=== PATIENT | male | born 2005 | race Caucasian/White ===

== ENCOUNTER 2025-01-21 08:36 | Outpatient (AMB) | payer OTHER, MEDICAID, SELFPAY ==
[2025-01-21 09:15] VITALS: BP 102/70; PULSE 62; TEMP 36.8; O2SAT 96; BMI 30.6
--- NOTE | 2025-01-21 09:15 | AM.OFFWIN_ITS ---
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 - The condition began approximately one month ago, with symptoms including itching, crusting, and flaking around the lips. - The patient has used CeraVe eczema cre am and lotion, but symptoms have persisted and worsened after ocean exposure. - No history of eczema in this area and no hydrocortisone use reported. - Itching occurs mainly upon waking, wit h no allergy medications taken. - He denies new lotions, soaps, detergen ts, shaving cream, cologne, foods, medications, or other rashes. Physical Exam General: Cooperative, healthy appearing, comfortable, no acute distress and well developed Orientation: Patient oriented x3 Limitations: No limitations Mouth: Normal, moist oral mucosa with flaky, dry skin around the lips Respiratory: Normal respiratory effort and able to speak in complete sentences. Clear to auscultation bilaterally. No w/r/r noted. Cardiovascular: RRR, no m/r/g noted. Normal S1 and S2 Skin: Whitish flaking noted on the lower lip, dry, slightly erythematous. No lesions noted. Patient was informed and verbally consented to the use of an ambient scribe for clinic note documentation during this visit Review of Systems Const All systems reviewed & are unremarkable except as noted in HPI and below Physical Exam Vital Signs: Last Vital Signs Temp 98.2 F 01/21/25 09:15 Pulse 62 01/21/25 09:15 BP 102/70 01/21/25 09:15 Pulse Ox 96 01/21/25 09:15 Oxygen Delivery Method Room Air 01/21/25 09:15 BMI result Body Mass Index 30.6 Assessment & Plan Assessment & Plan (1) Rash: Code(s): R21 - Rash and other nonspecific skin eruption Plan Most likely tinea vs dermatitis vs eczema vs folliculitis plan - A topical cream will be prescribed for application to the affected area. - Consideration for allergy medication to alleviate itching was discussed. - Referral to dermatology is advised if symptoms do not improve. Medications: New cetirizine 10 mg PO DAILY PRN 30 tabs 0RF allergy symptoms clotrimazole 1% 1 appl topical bid 45 grams 1RF 4 weeks Coding Level of Care Code Est Pt Level 3 (64464) Diagnoses Rash R21
== END 2025-01-21 09:31 | disposition home or self-care (01) ==
PROVIDERS: PCP Family Medicine; Visit Provider Physician Assistant Medical
DX: R21 Rash and other nonspecific skin eruption (principal)

== ENCOUNTER 2025-02-09 09:43 | Outpatient (AMB) | payer OTHER, MEDICAID, SELFPAY ==
[2025-02-09 09:48] VITALS: BP 112/82; PULSE 56; O2SAT 98; BMI 30.5
--- NOTE | 2025-02-09 09:48 | A.OFFPC_ITS ---
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 Allergies No Known Allergies Allergy (Verified 02/09/25 09:54) Medication List - Last Reconciled 02/09/25 by Mauri Roman MD albuterol sulfate 90 mcg/actuation 1 puff inhalation Q4-6H cetirizine 10 mg PO DAILY PRN clotrimazole 1% 1 appl topical bid 4 weeks Tobacco use date assessed: 02/09/25 Dental Screening Dental Screen Date: 02/09/25 Did you have a dental visit in the last 12 months?: Yes Did you have a dental problem in the last 6 months where you did not have access to dental care?: No Was dental information given to patient?: 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 ?? Prior PCP:? Unsure Last office visit/CPE:?3-5 yrs ago Acute issue(s):? Went to walk in for oral dermatitis ?? PMHx:? Asthma - uses Albuterol rarely (when sick). SurgHx:? Tonsils FHx:?None SocHx:? Nonsmoker. EtOH Rarely 1-2 dr. [facility] Surgical History (Updated 02/09/25 @ 09:55 by Monse Key CMA) No pertinent past surgical history Social History (Updated 02/09/25 @ 09:56 by Monse Key CMA) Household Members: Family Housing: House Alcohol intake: current Alcohol intake frequency: a few times a month Alcohol type: hard liquor Patient Tobacco Use Status: Never used Tobacco e-Cigarette/Vaping Use: Never Used service: Yes ([employer]) Current occupational status: employed Current occupation: [employer] Cognitive needs: No Hearing needs: No Vision needs: No Questionnaire PHQ-9 Over the last 2 weeks, how often have you been bothered by any of the following problems? 1. Little interest or pleasure in doing things: not at all 2. Feeling down, depressed, or hopeless: not at all 3. Trouble falling or staying asleep, or sleeping too much: more than half the days 4. Feeling tired or having little energy: not at all 5. Poor appetite or overeating: not at all 6. Feeling bad about yourself - or that you are a failure or have let yourself or your family down: not at all 7. Trouble concentrating on things, such as reading the newspaper or watching television: not at all 8. Moving or speaking so slowly that other people could have noticed. Or the opposite - being so fidgety or restless that you have been moving around a lot more than usual: not at all 9. Thoughts that you would be better off or of hurting yourself in some way: not at all Total score: 2 Depression Screening Interpretation: Negative Depression Screening Done: Yes 45734 - PHQ-9 Billing: Yes Source: Developed by Drs. Denis Anguiano, Kinjal Carson, Jared Joseph and colleagues, with an educational robert from [employer]. Thrive Questionnaire Date Thrive assessed: 02/06/25 I am a: Patient What is your living situation today?: I have a steady place to live Within the past 12 months, did the food you bought not last and you didn't have the money to get more?: I choose not to answer this question Within the past 12 months, did you worry whether your food would run out before you got money to buy more?: I choose not to answer this question Do you have trouble paying for medicines?: I choose not to answer this question Do you have trouble getting transportation to medical appointments?: No Do you have trouble paying your heating and electricity bill?: No Do you have trouble taking care of your child, family member or friend?: No Do you have trouble with day-to-day activities such as bathing, preparing meals, shopping, managing finances, etc.?: No Are you currently unemployed and looking for a job?: No Are you interested in more education?: Yes Please select the resources that you would like help with: None Currently or been in a relationship where the following occur: No concerns reported THRIVE Score: 0 AUDIT C Alcohol Use Questionnaire (AUDIT-C) 1. How often do you have a drink containing alcohol?: Monthly or less 2. How many drinks containing alcohol do you have on a typical day when you are drinking?: 1 or 2 3. How often do you have six or more drinks on one occasion?: Never Total Score: 1 LJ-7 AMB Questionnaire LJ-7 Date LJ - 7 assessed: 02/09/25 Feeling nervous, anxious, or on edge: 0 = Not at all Not being able to stop or control worryin = Not at all Worrying too much about different things: 0 = Not at all Trouble relaxin = Not at all Being so restless that it is hard to sit still: 0 = Not at all Becoming easily annoyed or irritable: 0 = Not at all Feeling afraid as if something awful might happen: 0 = Not at all Total LJ-7 score (0-4 normal; 5-9 mild; 10-14 moderate; 15-21 severe): 0 Source: Developed by Drs. Denis Anguiano, Kinjal Carson, Jared Joseph and colleagues, with an educational robert from [employer]. LJ-7 Assessment Billing LJ-7 Assessment Tool: LJ-7 Assessment 08505 Physical exam (Primary Care) Vital Signs: Last Vital Signs Pulse 56 02/09/25 09:48 BP 112/82 02/09/25 09:48 Pulse Ox 98 02/09/25 09:48 Oxygen Delivery Method Room Air 02/09/25 09:48 BMI result Body Mass Index 30.5 Tobacco/Smoking Status: Tobacco use Status Tobacco use date assessed 02/09/25 02/09/25 10:01 Patient Tobacco Use Status Never used Tobacco 02/09/25 10:01 e-Cigarette/Vaping Use Never Used 02/09/25 10:01 PHQ-9: PHQ-9 Score PHQ-9: Total score 2 02/09/25 10:40 Depression Screening Interpretation: Negative Thrive Assessment: Date of Thrive Assessment Date Thrive assessed 02/06/25 02/09/25 10:01 Currently or been in a relationship where the following occur: No concerns reported Immunizations Boostrix Tdap 2.5 Lf unit-8 mcg-5 Lf/0.5 mL intramuscular syringe Performing Provider: Mauri Roman MD Performing [facility] [facility] Administered by: Ab Fermin RN on 02/09/25 10:38 Dose Route Admin Location Dispensed Lot Number Expiration Date [facility] Merchandising Stock Associate 0.5 mL IM Right Deltoid 0.5 mL [id number] 04/01/27 66576-220-84 [employer] Total Dispensed Waste 0.5 mL 0 % VIS Given Date VIS Provided VIS Publication Date 02/09/25 Single Vaccine 20 Eligibility Eligibility Date Funding Source Not [facility] Eligible 02/09/25 Private Coding Level of Care Code New Pt Level 3 (24202) Diagnoses Dermatitis L30.9 Asthma J45.909 Sleep apnea G47.30 Screening for STD (sexually transmitted disease) Z11.3 Laboratory exam ordered as part of routine general medical examination Z00.00 Additional Codes LJ-7 Assessment Billing - LJ-7 Assessment Tool: LJ-7 Assessment 49010 ([id number]) PHQ-9 - 50648 - PHQ-9 Billing: Yes ([id number]) Assessment & Plan Assessment & Plan (1) Dermatitis: Code(s): L30.9 - Dermatitis, unspecified Category: Medical Plan: Rash around mouth and primarily on chin He is using clotrimazole for the past 2 weeks. Will make a referral to Dermatology. Continue clotrimazole for now (2) Asthma: Code(s): J45.909 - Unspecified asthma, uncomplicated Category: Medical Plan: Mild intermittent asthma Uses albuterol pump but needs a refill Will send script (3) Sleep apnea: Code(s): G47.30 - Sleep apnea, unspecified Category: Medical Plan: Patient frequently wakes up around the same time each night Some daytime sleepiness and does not feel rested when he awakens Thick neck No longer has tonsils Referred to Sleep Medicine (4) Screening for STD (sexually transmitted disease): Code(s): Z11.3 - Encounter for screening for infections with a predominantly sexual mode of transmission Category: Medical Plan: Asymptomatic Check labs (5) Laboratory exam ordered as part of routine general medical examination: Code(s): Z00.00 - Encounter for general adult medical examination without abnormal findings Category: Medical Plan: Check labs Plan Patient had paperwork for foster parenting No concerns on physical examination. Filled out paperwork Was due for Tdap which was provided Is also due for flu shot which we do not have yet. Recommended he get this at his pharmacy. Orders: Orders UA CC w/rflx Micro + Cult Today Z00.00 - Encounter for general adult medical examination without abnormal findings CT NG by PCR Urine Today Z11.3 - Encounter for screening for infections with a predominantly sexual mode of transmission Syphilis Screen Today Z11.3 - Encounter for screening for infections with a predominantly sexual mode of transmission Comprehensive [place]. Panel Fast Today Z00.00 - Encounter for general adult medical examination without abnormal findings Lipid Panel Today Z00.00 - Encounter for general adult medical examination without abnormal findings Microalbumin, Random (w Creat) Today I10 - Essential (primary) hypertension TSH reflex Free T4 Today Z00.00 - Encounter for general adult medical examination without abnormal findings HIV Ab/Ag Today Z11.3 - Encounter for screening for infections with a predominantly sexual mode of transmission Hepatitis B,C Profile Today Z11.3 - Encounter for screening for infections with a predominantly sexual mode of transmission TDaP Immunization Today Z23 - Encounter for immunization Referrals Sleep Medicine Referral G47.30 - Sleep apnea, unspecified Dermatology Referral L30.9 - Dermatitis, unspecified, R21 - Rash and other nonspecific skin eruption Medications: New albuterol sulfate 90 mcg/actuation (Ventolin HFA) 2 puffs inhalation Q4-6H PRN 8.5 grams 4RF shortness of breath or wheezing 30 days
== END 2025-02-09 10:35 | disposition home or self-care (01) ==
LOC: HO.HMCFM 09:44
PROVIDERS: Visit Provider Family Medicine
DX: L30.9 Dermatitis, unspecified (principal); J45.909 Unspecified asthma, uncomplicated; G47.30 Sleep apnea, unspecified; Z11.3 Encounter for screening for infections with a predominantly sexual mode of transmission; Z00.00 Encounter for general adult medical examination without abnormal findings; Z23 Encounter for immunization

== ENCOUNTER → 2025-02-09 09:43 | Outpatient (BNVA) | payer OTHER, SELFPAY | PROVIDERS: Visit Provider Family Medicine | DX: Z00.00 Encounter for general adult medical examination without abnormal findings (principal); L30.9 Dermatitis, unspecified; J45.909 Unspecified asthma, uncomplicated; G47.30 Sleep apnea, unspecified; Z23 Encounter for immunization | CPT/HCPCS: 90471; 90715; 96127 ==

== ENCOUNTER 2025-02-18 11:32 | Outpatient (AMB) | payer OTHER, SELFPAY ==
[2025-02-18 11:39] VITALS: BP 108/74; PULSE 59; O2SAT 98; BMI 30.6
--- NOTE | 2025-02-18 11:39 | MHC.OFFVIS ---
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 Patient frequently wakes up around the same time each night. Some daytime sleepiness and does not feel rested when he awakens. No longer has tonsils. Goes to bed around 9-10pm and wakes up at 6am. Witnessed snoring. No history of sleep studies Accompanied by: Self / Same As Patient Allergies No Known Allergies Allergy (Verified 02/18/25 11:42) HPI Comments Details: 19 year old male is referred to us for an evaluation of sleep difficulties, he is referred to us by his pcp. Pt. is in the [employer] and has rotating shifts of 3months at night 10pm-6am then 3months days 6am to 2pm and 3 months of 2-10pm. 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 He has no difficulty falling asleep. He wakes up at 3am - 5am, consistently and gasps for air. He snores loudly and has been told by his partner in the past to stop snoring . He denies bruxism, chlenching of the jaw. He denies morning headaches. RLS symptoms, he moves his legs alot but it is a discharge of energy and not distressing. He gets anxious and manages with exercise and diet. He goes to the gym 3-5x a week, runs 2x a week, lifts weights. His memory is foggy and can't remember words when multi-tasking or gets lost in conversation. Has brain-farts . He does not smoke, take edibles or MJ or drink alcohol. [facility] Surgical History No pertinent past surgical history Social History Household Members: Family Housing: House Alcohol intake: current Alcohol intake frequency: a few times a month Alcohol type: hard liquor Patient Tobacco Use Status: Never used Tobacco e-Cigarette/Vaping Use: Never Used service: Yes ([employer]) Current occupational status: employed Current occupation: [employer] Cognitive needs: No Hearing needs: No Vision needs: No Physical Exam Vital Signs: Last Vital Signs Pulse 59 02/18/25 11:39 BP 108/74 02/18/25 11:39 Pulse Ox 98 02/18/25 11:39 Oxygen Delivery Method Room Air 02/18/25 11:39 BMI result Body Mass Index 30.6 Const General: cooperative, comfortable and no acute distress Nutritional Appearance: average body habitus Orientation/consciousness: patient oriented x3 HEENT Face and sinus: Yes face symmetric Teeth and gingiva: other (mallampti score 4) Eyes Pupils: Equal, round and reactive pupils present Neck Neck: Yes full ROM Resp Effort & Inspection: normal respiratory effort and able to speak in complete sentences Neuro General: patient oriented x3 and moves all extremities Cranial nerves: Yes Equal, round and reactive pupils present, Yes Normal accommodation reflex present, Yes Normal facial strength present, Yes Midline tongue present, Yes Ability to bilaterally rotate head present and Yes Ability to bilaterally elevate shoulders present Cognition (Neuro): normal cognition Gait exam (Neuro): Normal gait present Motor exam (neuro): 5/5 motor strength present throughout and Normal motor muscle tone present throughout Psych Appearance: grossly normal Speech and movement: Normal speech and movement present Thought process: Normal thought process present Thought content: Normal thought content present Assessment & Plan Assessment & Plan (1) Excessive daytime sleepiness: Code(s): G47.19 - Other hypersomnia Category: Medical (2) Anxiety: Comment: controlled with diet and lifestyle Code(s): F41.9 - Anxiety disorder, unspecified Category: Medical Plan HST r/o HEENA Labs r/o deficiencies F/U 3 months Orders: Orders RT home sleep study Today G47.19 - Other hypersomnia Complete Blood Count no Diff Today G47.19 - Other hypersomnia Homocysteine Today G47.19 - Other hypersomnia, G47.9 - Sleep disorder, unspecified, R53.83 - Other fatigue Vitamin D 25-OH Total Today G47.19 - Other hypersomnia TSH reflex Free T4 Today G47.19 - Other hypersomnia Comprehensive Met. Panel Today G47.19 - Other hypersomnia Ferritin Today G47.19 - Other hypersomnia Methylmalonic Acid Today G47.19 - Other hypersomnia, G47.9 - Sleep disorder, unspecified, R53.83 - Other fatigue Vitamin B6 Today G47.19 - Other hypersomnia Vitamin B12 and Folate Today G47.19 - Other hypersomnia Vitamin B1 Today G47.19 - Other hypersomnia Patient Instructions: Sleep Hygiene provided: set a scheduled bedtime and wake time to help regulate the circadian rhythm and balance the release of pituitary hormones. Sleep in a dark room, temperatures below 68 degrees, and no devices n bed. Limit caffeinated products 6 hours prior to bed, and limit fluids 2-4 hours prior to bed. Gentle night yoga, diffusing essential oils, and playing soft music can be relaxing. Coding Level of Care Code New Pt Level 4 (77694) Diagnoses Excessive daytime sleepiness G47.19 Anxiety F41.9 Sleep Questionnaire Difficulty falling asleep: No Difficulty staying asleep?: Yes Number of arousals: 1 Snoring: Yes Witnessed apneas: No Gasping arousals: Yes Nocturia: No GERD: No Vivid dreams: Yes Acting out dreams: No Abnormal behavior in sleep: Yes (sleep walks) Abnormal movements in sleep: Yes Morning headaches: No Excessive daytime sleepiness: No Daytime naps: No Restless legs: Yes Hallucinations: No Sleep paralysis: No Drop attacks: No Sleep Study: No CPAP: No
== END 2025-02-18 12:25 | disposition home or self-care (01) ==
LOC: HO.HSMC 11:33
PROVIDERS: Visit Provider Physician Assistant Medical
DX: G47.19 Other hypersomnia (principal); F41.9 Anxiety disorder, unspecified
CPT/HCPCS: 99204

== ENCOUNTER 2025-02-26 07:35 | Outpatient (REF) | payer OTHER, SELFPAY ==
[2025-02-26 11:42] LABS: Appearance Urine Turbid; Glucose Urine UA Negative (Negative); PH 6.0 (5.0-9.0); Specific Gravity - Urine 1.025 (1.005-1.025)
[2025-02-26 12:18] LABS: Hematocrit 46.0 % (42.0-52.0); Hemoglobin 15.5 g/dl (14.0-18.0); Mean Corpuscular HGB Conc 33.7 g/dl (31.0-36.0); Mean Corpuscular Hemoglobin 28.7 pg (27.0-33.0); Mean Corpuscular Volume 85.0 fL (80.0-98.0); NRBC Abs Auto 0.000 X10*3/uL (0.0-0.012); NRBC Pct Auto 0.0 /100WBC (0.0-0.2); Platelet Count 246 X10*3/uL (160-400); Red Blood Count 5.41 X10*6/uL (4.60-5.80); White Blood Count 5.7 X10*3/uL (4.8-10.8)
[2025-02-26 12:40] LABS: Alanine Aminotransferase 42 U/L (0-40); Albumin Level 4.6 g/dL (3.5-5.0); Alkaline Phosphatase 98 U/L (39-117); Anion Gap 8 (12-20); Aspartate Amino Transferase 33 U/L (5-37); Blood Urea Nitrogen 17 mg/dL (9-16); Calcium 9.0 mg/dL (8.4-10.2); Carbon Dioxide 28 mmol/L (22-29); Chloride 109 mmol/L (96-108); Cholesterol 195 mg/dL (<200); Estimated Glomerular Filt Rate > 60; HDL Cholesterol 42 mg/dL (>40); Potassium 4.1 mmol/L (3.3-5.1); Sodium 141 mmol/L (135-145); Total Protein 7.0 g/dL (6.5-8.0); Triglycerides 153 mg/dL (<150)
[2025-02-26 12:48] LABS: Ferritin 75 ng/mL (20-250)
[2025-02-26 13:05] LABS: Folate 7.2 ng/mL (> or = 4.0); Vitamin B12 382 pg/mL (200-900)
[2025-02-26 13:10] LABS: CT PCR Urine NOT DETECTED (Not Detect.); NG PCR Urine NOT DETECTED (Not Detect.)
[2025-02-27 05:25] LABS: HBS Num1 10.41 mIU/mL (0-7.99); HBc Num1 0.08 S/CO (0.00-0.79); HBsAGNum1 0.31 S/CO (0.00-0.99); HIV Num 1 0.05 S/CO (0.00-0.99); Hepatitis B Surface Antigen Negative (Negative); ~HepC Num1 0.07 S/CO (0.00-0.79); ~Hepatitis C Antibody Nonreactive (Nonreactive)
[2025-02-27 05:40] LABS: Syphilis Screen Nonreactive (Nonreactive)
[2025-02-27 07:19] LABS: HBS Num2 8.97 mIU/mL (0-7.99)
[2025-02-27 07:20] LABS: HBS Num3 10.40 mIU/mL (0-7.99); ~Hepatitis B Surface Antibody GRAYZONE (Nonreactive)
== END 2025-02-26 07:36 | disposition home or self-care (01) ==
LOC: HO.WFDLDS 07:35
PROVIDERS: Physician Assistant Medical; Visit Provider Family Medicine
DX: Z00.00 Encounter for general adult medical examination without abnormal findings (principal); Z11.4 Encounter for screening for human immunodeficiency virus [HIV]; Z20.2 Contact with and (suspected) exposure to infections with a predominantly sexual mode of transmission; G47.19 Other hypersomnia; R53.83 Other fatigue; G47.9 Sleep disorder, unspecified; I10 Essential (primary) hypertension; Z13.21 Encounter for screening for nutritional disorder
CPT/HCPCS: 36415; 80053; 80061; 81003; 82043; 82306; 82570; 82607; 82728; 82746; 83921; 84207; 84425; 84443; 85027; 86704; 86706; 86780; 86803; 87340; 87389; 87491; 87591

== ENCOUNTER 2025-04-06 14:10 | Outpatient (AMB) | payer OTHER, SELFPAY ==
--- NOTE | 2025-04-06 14:18 | A.OFFPC_ITS ---
Vital Signs 04/06/25 14:25 Height 5 ft 8 in Weight 202 lb 6 oz BMI 30.8 BP 100/60 Blood Pressure Location Rt brachial Position Sitting Pulse 72 Pulse Source Pulse Oximeter Temp 97.9 F Temp Source Temporal Artery Scan Pulse Oximetry (%) 96 Oxygen Delivery Method Room Air Intake Visit Reasons: CPE with f/u labs 30 mins / Dr. Mcnael PtAlexandru Intake Note: Trent presents in the office today for a physical and lab follow up. Allergies No Known Allergies Allergy (Verified 04/06/25 14:23) Medication List - Last Reconciled 04/06/25 by JOANN Cesar albuterol sulfate 90 mcg/actuation (Ventolin HFA) 2 puffs inhalation Q4-6H PRN 30 days albuterol sulfate 90 mcg/actuation 1 puff inhalation Q4-6H cetirizine 10 mg PO DAILY PRN clotrimazole 1% 1 appl topical bid 4 weeks Tobacco use date assessed: 04/06/25 Dental Screening Dental Screen Date: 04/06/25 Did you have a dental visit in the last 12 months?: Yes Did you have a dental problem in the last 6 months where you did not have access to dental care?: No Was dental information given to patient?: Patient has dentist HPI HPI Comments History of Present Illness Details 19-year-old male presents for a physical exam. He has a wart on his left middle finger for over a year. It is large, and it hurts. He would like it removed. [id number] medications ineffective. I referred him to [facility]. He would like to use schedule his sleep study that was ordered by Dr. Parra. I sent a message to the scheduling department. Hepatitis-B antibody was ac zone. He has received the vaccine series in the past. He will repeat the test. One of his liver enzymes was mildly elevated. He drinks alcohol socially once or twice per week. Denies GI symptoms. He will return to repeat this in 4 weeks. Screening for hep a, B and C infection negative. No recent illnesses. Declines flu vaccine today. States he already received it. Uses albuterol as needed for asthma usually triggered by viral illness. ROS: Constitutional: No unexplained weight loss, fever, chills or night sweats. Eyes: No vision changes, blurry vision, double vision, eye pain, eye redness, eye discharge. ENT: No hearing loss, sneezing, congestion, runny nose or sore throat. Respiratory: No shortness of breath, cough or sputum production. Cardiovascular: No chest pain, chest pressure or chest discomfort. No palpitations or pedal edema. Gastrointestinal: No anorexia, nausea, vomiting or diarrhea. No abdominal pain or blood in stool. Genitourinary: No dysuria, hematuria, urinary frequency. Neurologic: No headache, dizziness, syncope, unilateral weakness, ataxia, numbness or tingling in the extremities. Musculoskeletal: No back pain or joint swelling. Patient strained left pectoral when he bench pressed at the gym a few days ago. Pain is mild. It does not limit ADLs and he is managing this conservatively. Hematologic/Lymphatics: No bleeding or bruising. No painful lymph nodes. Skin: See HPI Endocrine: No cold or heat intolerance. No polyuria or polydipsia. Psychiatric: Denies depression and anxiety. Physical exam: Constitutional: Alert, in no distress. Head: Normocephalic. Eyes: Pupils are equal, round and reactive to light. Extraocular muscles intact. Ear, Nose and Throat: Canals clear. TMs normal. Normal nasal mucosa. No nasal discharge. No oral lesions. Neck: Supple, Full range of motion. No lymphadenopathy. No palpable thyroid masses. Respiratory: Clear to auscultation. Cardiovascular: S1 S2 regular. No murmurs Gastrointestinal: Abdomen soft, non-tender, non-distended. Normal bowel sounds. No palpable masses. Genitourinary: Patient declined exam. Neurologic: No focal neurological deficits. Symmetric patellar reflexes. Moves all extremities spontaneously. Sensation intact bilaterally. Skin: large verrucous growth on the side of the left middle finger Musculoskeletal: No gross deformities. Normal range of motion. Extremities: Warm and well perfused. No clubbing, cyanosis or edema. Intact peripheral pulses bilaterally. Psychiatric: Normal mood and affect [facility] Medical History (Updated 04/06/25 @ 15:23 by JOANN Cesar) Routine physical examination Viral wart on finger Fatigue LFT elevation Surgical History No pertinent past surgical history Social History (Updated 04/06/25 @ 14:25 by Molly Diaz CMA) Household Members: Family Housing: House Alcohol intake: current Alcohol intake frequency: a few times a month Alcohol type: hard liquor Patient Tobacco Use Status: Never used Tobacco e-Cigarette/Vaping Use: Never Used Second Hand Smoke Exposure: No service: Yes ([employer]) Current occupational status: employed Current occupation: [employer] Cognitive needs: No Hearing needs: No Vision needs: No Questionnaire Thrive Questionnaire Date Thrive assessed: 02/06/25 I am a: Patient What is your living situation today?: I have a steady place to live Within the past 12 months, did the food you bought not last and you didn't have the money to get more?: I choose not to answer this question Within the past 12 months, did you worry whether your food would run out before you got money to buy more?: I choose not to answer this question Do you have trouble paying for medicines?: I choose not to answer this question Do you have trouble getting transportation to medical appointments?: No Do you have trouble paying your heating and electricity bill?: No Do you have trouble taking care of your child, family member or friend?: No Do you have trouble with day-to-day activities such as bathing, preparing meals, shopping, managing finances, etc.?: No Are you currently unemployed and looking for a job?: No Are you interested in more education?: Yes Please select the resources that you would like help with: None Currently or been in a relationship where the following occur: No concerns reported THRIVE Score: 0 LJ-7 AMB Questionnaire LJ-7 Date LJ - 7 assessed: 02/09/25 Source: Developed by Drs. Denis Anguiano, Kinjal Carson, Jared Joseph and colleagues, with an educational robert from [employer]. Physical exam (Primary Care) Vital Signs: Last Vital Signs Temp 97.9 F 04/06/25 14:25 Pulse 72 04/06/25 14:25 BP 100/60 04/06/25 14:25 Pulse Ox 96 04/06/25 14:25 Oxygen Delivery Method Room Air 04/06/25 14:25 BMI result Body Mass Index 30.8 Tobacco/Smoking Status: Tobacco use Status Tobacco use date assessed 04/06/25 04/06/25 14:28 Patient Tobacco Use Status Never used Tobacco 04/06/25 14:25 e-Cigarette/Vaping Use Never Used 04/06/25 14:25 Thrive Assessment: Date of Thrive Assessment Date Thrive assessed 02/06/25 04/06/25 14:19 Currently or been in a relationship where the following occur: No concerns reported Coding Level of Care Code Est Pt Prev Care [id number](73321) Diagnoses Routine physical examination Z00.00 LFT elevation R79.89 Other fatigue R53.83 Fatigue type: other Viral wart on finger B07.9 Assessment & Plan Assessment & Plan (1) Routine physical examination: Code(s): Z00.00 - Encounter for general adult medical examination without abnormal findings Category: Medical (2) LFT elevation: Code(s): R79.89 - Other specified abnormal findings of blood chemistry Category: Medical (3) Fatigue: Code(s): R53.83 - Other fatigue Category: Medical Qualifiers: Fatigue type: other Qualified Code(s): R53.83 - Other fatigue Plan: Message sent to schedule sleep study. Patient requested testosterone level. (4) Viral wart on finger: Code(s): B07.9 - Viral wart, unspecified Category: Medical Plan Patient is seen today for a routine physical. As part of this visit we reviewed the following issues, which are considered and essential part of preventative health in this age group: - Testicular cancer screening, which includes self exam teaching - Screening for colon cancer- early screening not indicated based on family history - Blood pressure screening annually - Cholesterol screening - Nutritional and exercise counseling - Counseling of injury prevention including fire prevention, smoke alarms and seat belt usage - Screening for depression - Recommendations about immunizations - Recommendation of an eye exam - Screening for substance abuse Schedule physical exam in 1 year Orders: Orders Aspartate Amino Transferase 4 Weeks R79.89 - Other specified abnormal findings of blood chemistry Testosterone, Free/Total Today R53.83 - Other fatigue Alanine Aminotransferase 4 Weeks R79.89 - Other specified abnormal findings of blood chemistry Hepatitis BE Antibody 4 Weeks R79.89 - Other specified abnormal findings of blood chemistry Referrals Dermatology Referral B07.9 - Viral wart, unspecified
[2025-04-06 14:25] VITALS: BP 100/60; PULSE 72; TEMP 36.6; O2SAT 96; BMI 30.8
== END 2025-04-06 15:17 | disposition home or self-care (01) ==
LOC: HO.HMCFM 14:11
PROVIDERS: PCP Family Medicine; Visit Provider Physician Assistant Medical
DX: Z00.00 Encounter for general adult medical examination without abnormal findings (principal); R79.89 Other specified abnormal findings of blood chemistry; R53.83 Other fatigue; B07.9 Viral wart, unspecified

== ENCOUNTER 2025-04-25 18:08 | Emergency (ER) | payer OTHER, SELFPAY ==
[2025-04-25 18:18] VITALS: BP 130/62; PULSE 102; RESP 20; TEMP 36.8; O2SAT 97; BMI 29.8
--- NOTE | 2025-04-25 18:21 | ED_ITS ---
HPI - General Adult General Chief complaint: Abdominal Pain Stated complaint: General Medical Time Seen by Provider: 04/25/25 22:47 History of Present Illness ED Provider: Neymar Linn MD HPI narrative: 20-year-old male who presents with nausea vomiting diarrhea less than 24 hours family also sick with similar. No significant abdominal pain he is an asthmatic takes no medications. No surgical history Related Data Home Medications ?Medication ?Instructions ?Recorded ?Confirmed albuterol sulfate 90 mcg/actuation 1 puff inhalation Q 4-6H dyspnea 02/09/25 04/06/25 aerosol inhaler Previous Rx's ?Medication ?Instructions ?Recorded cetirizine 10 mg tablet 10 mg PO DAILY PRN allergy 0 01/21/25 symptoms #30 tabs clotrimazole 1 % topical cream 1 appl topical bid 4 we eks #45 01/21/25 grams albuterol sulfate 90 mcg/actuation 2 puff inhalation Q 4-6H PRN 02/09/25 aerosol inhaler (Ventolin HFA) shortness of breath or wheezing 30 days #8.5 grams ondansetron 4 mg disintegrating 4 mg PO Q8H PRN nausea and 04/25/25 tablet vomiting #7 tabs Allergies Allergy/AdvReac Type Severity Reaction Status Date / Time No Known Allergies Allergy Verified 04/25/25 18:22 COUNT INCLUDES THE [facility] Past Medical History Medical History (Updated 04/27/25 @ 00:00 by Jaylon Tate) Routine physical examination Viral wart on finger Fatigue LFT elevation Surgical History No pertinent past surgical history Social History Social History (Updated 04/06/25 @ 14:25 by Molly Diaz CMA) Household Members: Family Housing: House Alcohol intake: current Alcohol intake frequency: holidays/special occasions only Alcohol type: hard liquor Patient Tobacco Use Status: Never used Tobacco Smoked in Last 30 Days: No e-Cigarette/Vaping Use: Never Used Second Hand Smoke Exposure: No Use of substances other than those prescribed or required for medical reasons: No Advance Directives: No Advance Directives Information Provided: No Do you have a plan to hurt others: No Plan service: Yes ([employer]) Current occupational status: employed Current occupation: [employer] Cognitive needs: No Hearing needs: No Vision needs: No Physical Exam ED Exam Exam: EXAM: Gen: Alert, awake, well appearing, well hydrated. Head: Atraumatic Eyes: Anicteric, Normal conjunctiva. ENT: Moist mucosa, no pallor. ? Neck: Supple. Skin: ?No observable rash or bruising on exposed or examined skin Respiratory: Breathing comfortably, No distress.Clear to auscultation bilaterally, symmetric chest expansion, No wheeze, rales, ronchi. Cardiovascular: Regular rate and rhythm. No murmurs or rub. Well perfused periphery, warm extremities. No edema. ? Abdominal: No focal tenderness. Soft, no objective distension. No palpable masses or obvious organomegaly. ?No guarding, no rebound tenderness or other peritoneal findings. : No flank tenderness. Neuro: Alert. Gross movement of all extremities intact. ? Psych: Calm. Cooperative. MSK: No grossly visible deformity. Vital signs: See flowsheet Vital Signs: Vital Signs - 24 hr 04/25/25 18:18 Temperature 98.3 F Pulse Rate 102 H Respiratory Rate 20 Blood Pressure 130/62 Pulse Oximetry 97 Oxygen Delivery Method Room Air BMI result Body Mass Index 29.8 Course Course Course Narrative: This is a Rapid Medical Examination (RME) performed by Austin Kemp PA-C in triage. Full HPI, ROS, assessment and treatment plan per primary provider in the Main ED. Hx: 20 yo M here for eval of myalgias, cough, sore throat, N/V/D. fam is ill at home w/ similar sx. Plan: viral/strep swabs Medical Decision Making Medical Decision Making MDM Narrative: Medical Decision Makin-year-old male with GI symptoms. Nontender abdomen. No fever. Looks well given the family sick contacts benign examination vital signs plan for supportive therapy at home antiemetics counseled reassuring strict return precautions provided Preliminary Favored Differential Diagnosis: Food-borne illness, gastroenteritis among additional considered etiologies Testing Interpreted Independently: ?See below for details Radiology or Lab testing Results Reviewed: ?See below for details Consults: ?See below for details Independent Historians/External Chart Reviews: ?See below for details Social Determinants of Health Impacting MDM/Planning: ?See below for details Lab Data 04/25/25 20:34 04/25/25 20:34 Labs: Lab Results 04/25/25 04/25/25 Range/Units 19:02 20:34 WBC 9.0 (4.8-10.8) X10*3/uL RBC 6.04 H (4.60-5.80) X10*6/uL Hgb 17.0 (14.0-18.0) g/dl Hct 49.6 (42.0-52.0) % MCV 82.1 (80.0-98.0) fL MCH 28.1 (27.0-33.0) pg MCHC 34.3 (31.0-36.0) g/dl RDW 12.4 (11.0-16.0) % Plt Count 271 (160-400) X10*3/uL MPV 9.8 (9.4-12.4) fL Immature Gran % (Auto) 0.3 (0.0-0.4) % Neut % (Auto) 87.5 H (45-73) % Lymph % (Auto) 6.4 L (20-40) % [place] % (Auto) 5.5 (2-11) % Eos % (Auto) 0.2 (0-4) % Baso % (Auto) 0.1 (0-2) % Lymph # (Auto) 0.6 L (1.2-4.9) X10*3/uL [place] # (Auto) 0.5 (0.1-1.2) X10*3/uL Eos # (Auto) 0.0 (0.0-0.4) X10*3/uL Baso # (Auto) 0.0 (0.0-0.2) X10*3/uL Abs Immat Gran (auto) 0.03 (0.00-0.03) X10*3/uL Absolute Neuts (auto) 7.8 (2.0-8.3) x10*3/uL Absolute Nucleated RBC 0.000 (0.0-0.012) X10*3/uL Nucleated RBC % (auto) 0.0 (0.0-0.2) /100WBC Sodium 141 (135-145) mmol/L Potassium 4.3 (3.3-5.1) mmol/L Chloride 107 (96-108) mmol/L Carbon Dioxide 25 (22-29) mmol/L Anion Gap 13 (12-20) BUN 16 (9-16) mg/dL Creatinine 1.01 (0.5-1.4) mg/dL Estim Creat Clear Calc 124.3 Estimated GFR > 60 Random Glucose 108 (60-115) mg/dL Calcium 9.8 D (8.4-10.2) mg/dL Magnesium 1.9 (1.6-2.6) mg/dL Total Bilirubin 0.9 (0.0-1.0) mg/dL AST 28 (5-37) U/L ALT 57 H (0-40) U/L Alkaline Phosphatase 92 (39-117) U/L Total Protein 7.5 (6.5-8.0) g/dL Albumin 5.1 H (3.5-5.0) g/dL Lipase 14 (8-78) U/L Influenza Type A (PCR) NEGATIVE (Negative) Influenza Type B (PCR) NEGATIVE (Negative) RSV RNA Qual (PCR) NEGATIVE (Negative) SARS-CoV-2 RNA (RT-PCR) NEGATIVE (Negative) S. pyogenes GrpA JAY Negative (Negative) Discharge Plan Discharge Clinical Impression: Gastroenteritis Patient Disposition: Home, Self-Care Instructions: Acute Nausea and Vomiting (ED) Additional Instructions: Use the provided nausea medicine 30 minutes before attempting to eat meals. As we discussed slowly advance her diet start with bland foods chicken soup or broth or toast on the 1st day Prescriptions: New ondansetron 4 mg tablet,disintegrating 4 mg PO Q8H PRN (Reason: nausea and vomiting) Qty: 7 0RF No Action albuterol sulfate 90 mcg/actuation HFA aerosol inhaler 1 puff inhalation Q4-6H albuterol sulfate [Ventolin HFA] 90 mcg/actuation HFA aerosol inhaler 2 puff inhalation Q4-6H PRN (Reason: shortness of breath or wheezing) 30 Days Qty: 8.5 4RF clotrimazole 1 % cream 1 appl topical bid 28 Days Qty: 45 1RF cetirizine 10 mg tablet 10 mg PO DAILY PRN (Reason: allergy symptoms) Qty: 30 0RF Stand Alone Forms: Work/School Release Interventions: ED Discharge Assessment Last Done: 04/26/25 00:23 Discharge Date/Time: 04/26/25 00:25 Print Language: Danish
[2025-04-25 19:35] LABS: IDNOW Serial# 6674DD1D; Strep A Nucleic Acid Negative (Negative)
[2025-04-25 19:57] LABS: Resp Syncy Virus RNA Qual PCR NEGATIVE (Negative); SARS COV2 PCR INHOUSE NEGATIVE (Negative)
[2025-04-25 20:46] LABS: MANUAL DIFF FLAG NO
[2025-04-25 20:51] LABS: Hematocrit 49.6 % (42.0-52.0); Hemoglobin 17.0 g/dl (14.0-18.0); Imm Gran Abs Auto 0.03 X10*3/uL (0.00-0.03); Imm Gran Pct Auto 0.3 % (0.0-0.4); Lymphocytes Absolute Auto 0.6 X10*3/uL (1.2-4.9); Mean Corpuscular HGB Conc 34.3 g/dl (31.0-36.0); Mean Corpuscular Hemoglobin 28.1 pg (27.0-33.0); Mean Corpuscular Volume 82.1 fL (80.0-98.0); NRBC Abs Auto 0.000 X10*3/uL (0.0-0.012); NRBC Pct Auto 0.0 /100WBC (0.0-0.2); Platelet Count 271 X10*3/uL (160-400); Red Blood Count 6.04 X10*6/uL (4.60-5.80); White Blood Count 9.0 X10*3/uL (4.8-10.8)
[2025-04-25 21:05] LABS: Alanine Aminotransferase 57 U/L (0-40); Albumin Level 5.1 g/dL (3.5-5.0); Alkaline Phosphatase 92 U/L (39-117); Anion Gap 13 (12-20); Aspartate Amino Transferase 28 U/L (5-37); Blood Urea Nitrogen 16 mg/dL (9-16); Calcium 9.8 mg/dL (8.4-10.2); Carbon Dioxide 25 mmol/L (22-29); Chloride 107 mmol/L (96-108); Creatinine Clr Calc Pharmacy 124.3; Estimated Glomerular Filt Rate > 60; Lipase 14 U/L (8-78); Magnesium 1.9 mg/dL (1.6-2.6); Potassium 4.3 mmol/L (3.3-5.1); Sodium 141 mmol/L (135-145); Total Protein 7.5 g/dL (6.5-8.0)
[2025-04-26] VITALS: BP 121/73; PULSE 70; RESP 16; TEMP 36.7; O2SAT 97
[2025-04-26 00:23] VITALS: BP 121/73; PULSE 70; RESP 16; TEMP 36.7; O2SAT 97
== END 2025-04-26 00:25 | disposition home or self-care (01) ==
PROVIDERS: Physician Assistant Medical; Emergency Provider Emergency Medicine; PCP Family Medicine
DX: K52.9 Noninfective gastroenteritis and colitis, unspecified (principal); R11.2 Nausea with vomiting, unspecified; Z79.899 Other long term (current) drug therapy; Z03.818 Encounter for observation for suspected exposure to other biological agents ruled out
CPT/HCPCS: 36415; 80053; 83690; 83735; 85025; 87637; 87651; 99283; 99284